=== PATIENT | female | born 1960 | race Caucasian/White ===

== ENCOUNTER → 2016-08-06 | Outpatient (CLI) | payer OTHER ==
--- NOTE | 2016-08-06 16:39 | DX ---
Cervical spine AP and lateral 1616 hours. History: Follow-up fusion. (M 54.2) Findings: Comparison to July 05, 2016. Anterior cervical fusion plate is in stable position from C4 through C7 along with disk replacement m aterial. Vertebral body heights are well-maintained. The intervertebral disk at C2-C3, C3-C4, and C7- T1 are normal in appearance. Precervical soft tissue swelling has resolved. Impression: 1. Good alignment of anterior cervical fusion from C4 through C7.
== END ==
LOC: FIMAGING 16:18
PROVIDERS: ATTEND Physician Assistant
DX: Z09 Encounter for follow-up examination after completed treatment for conditions other than malignant neoplasm (principal); Z98.1 Arthrodesis status

== ENCOUNTER → 2016-10-01 | Outpatient (CLI) | payer OTHER | LOC: FIMAGING 16:27 | PROVIDERS: ATTEND Neurological Surgery | DX: Z09 Encounter for follow-up examination after completed treatment for conditions other than malignant neoplasm (principal); Z98.1 Arthrodesis status ==

== ENCOUNTER → 2017-03-02 | Outpatient (CLI) | payer OTHER | LOC: FIMAGING 15:13 | PROVIDERS: ATTEND Physician Assistant | DX: Z09 Encounter for follow-up examination after completed treatment for conditions other than malignant neoplasm (principal); Z98.1 Arthrodesis status ==

== ENCOUNTER 2017-03-07 17:06 | Emergency (ER) | payer OTHER ==
[2017-03-07] MEDS ORDERED: NS 1,000 ML IV ONE (17:31)
[2017-03-07] MEDS ORDERED: ACETAMINOPHEN 500 MG TAB PO ONE (17:38)
[2017-03-07 17:39] LABS: % IMMATURE GRANULYOCYTES 0.3 % (0.0-1.1); ABSOLUTE IMMATURE GRANULOCYTES 0.03 10^3/uL (0.00-0.10); ADD DIFF? NO; ADD MORPH? NO; ADD SCAN? NO; ATYPICAL LYMPHOCYTE FLAG 10 (0-99); FRAGMENT RBC FLAG 0 (0-99); HEMATOCRIT 37.7 % (38.0-47.0); HEMOGLOBIN 13.2 g/dL (12.6-16.3); LEFT SHIFT FLG 0 (0-99); LIPEMIA HEMOLYSIS FLAG 90 (0-99); MEAN CELL HEMOGLOBIN 32.1 pg (27.9-34.1); MEAN CELL VOLUME 91.7 fL (81.5-99.8); PLATELET CLUMPS FLAG 0 (0-99); PLATELET COUNT 309 10^3/uL (150-400); RED BLOOD CELL COUNT 4.11 10^6/uL (4.18-5.33); RED CELL DISTRIBUTION WIDTH 12.2 % (11.5-15.2)
[2017-03-07 17:54] LABS: COLOR YELLOW; LEUKOCYTE ESTERASE,URINE 1+ (NEGATIVE); PH,URINE 5.5 (5.0-7.5)
[2017-03-07 17:54] LABS: ANION GAP 13 mEq/L (8-16); CALCIUM 9.3 mg/dL (8.5-10.4); CARBON DIOXIDE 23 mEq/l (22-31); CHLORIDE 101 mEq/L (97-110); CREATININE 0.7 mg/dL (0.6-1.0); GLOMERULAR FILTRATION RATE > 60; GLUCOSE 119 mg/dL (70-100); POTASSIUM 3.8 mEq/L (3.5-5.2); SODIUM 137 mEq/L (134-144)
[2017-03-07 17:56] LABS: NITRITE,URINE POSITIVE (NEGATIVE)
[2017-03-07 18:01] LABS: BACTERIA 3+ /hpf (NONE SEEN); MUCUS 1+ /lpf (NONE-1+); WBC,URINE 15-25 /hpf (0-3)
[2017-03-07 18:15] VITALS: BP 122/78; PULSE 90; RESP 16
[2017-03-07] MEDS ORDERED: KETOROLAC 15 MG/1 ML SDV IVP ONE (18:21)
--- NOTE | 2017-03-07 18:21 | EDPHY ---
H & P Stated Complaint: fever, diarrhea, bilat flank pain more LT than RT Time Seen by Provider: 03/07/17 17:33 HPI/ROS: This patient presents with fever, flank pain and a positive UA from the urgent care sent here for further workup and treatment of suspected pyelonephritis. She explains that over the past 2 days she has had fevers associated with left more than right flank pain. She has also had chills. She initially followed up with Neurosurgery having had of the cervical fusion in June for routine follow-up was noted to have a fever of 102.5. She called her primary care physician's office but was unable to get in, went to the urgent care and then sent here. She reports having had similar symptoms in the past the prior UTI. She notes no exacerbating factors for her symptoms. She notes associated fatigue. She arrived here by private vehicle. ROS: Constitutional as per HPI no other symptoms HEENT: No complaints Pulmonary: No cough shortness of breath Cardiovascular: No heart palpitations or lightheadedness. No chest pain. GI: Mild suprapubic pain is present. No other GI complaints. Normal bowel movements. : She has not noticed dysuria. She has chronic frequency with no recent changes. No vaginal discharge. Integumentary: No skin rash Neuro: No numbness tingling weakness. Complete review of symptoms is otherwise negative. Source: Patient Exam Limitations: No limitations - Personal History Current Tetanus/Diphtheria Vaccine: Yes Current Tetanus Diphtheria and Acellular Pertussis (TDAP): Yes - Medical/Surgical History PMH: Cervical fusion for right arm radiculopathy with resolution radiculopathy post surgery-done by Dr. Mundo Giron 3 UTI since 2007 Hx Asthma: No Hx Chronic Respiratory Disease: No Hx Diabetes: No Hx Cardiac Disease: No Hx Renal Disease: No Hx Cirrhosis: No Hx Alcoholism: No Hx HIV/AIDS: No Hx Splenectomy or Spleen Trauma: No Other PMH: BILAT KNEE SURGERY, NECK FUSION, - Family History Significant Family History: No pertinent family hx - Social History Smoking Status: Current every day smoker Alcohol Use: Other (Patient reports 1-2 glasses of wine a night.) Drug Use: None - Physical Exam Exam: Vital signs notable for temperature of 38.4degrees centigrade. General Appearance: Alert, no distress. Eyes: Pupils equal and round no pallor or injection. ENT, Mouth: Mucous membranes moist. Respiratory: There are no retractions, lungs are clear to auscultation. Cardiovascular: Regular rate and rhythm. Gastrointestinal: Normoactive to hyperactive bowel sounds, soft, mild suprapubic tenderness with no guarding or rebound. No organomegaly. Back: Mild left CVA tenderness. Otherwise normal Neurological: GCS 15. Skin: Warm and dry, no rashes. Musculoskeletal: Neck is supple nontender. Extremities are symmetrical, full range of motion. Psychiatric: Mood and affect normal DIFFERENTIAL DIAGNOSIS: After history and physical exam differential diagnosis was considered for pyelonephritis, low back strain, cystitis, urosepsis, doubt epidural abscess, abdominal migraine Constitutional: Initial Vital Signs Temperature (C) 38.4 C H 03/07/17 17:15 Heart Rate 99 03/07/17 17:15 Respiratory Rate 18 03/07/17 17:15 Blood Pressure 131/85 H 03/07/17 17:15 O2 Sat (%) 97 03/07/17 17:15 O2 Delivery Mode Room Air Allergies/Adverse Reactions: clindamycin Allergy (Verified 06/20/16 16:38) Hives/chest pains Home Medications: Medication Instructions Recorded Herbals/Supplements -Info Only 1 ea PO DAILY 06/19/16 Multivitamins [Multivitamin (*)] 1 each PO DAILY 06/19/16 Cephalexin [Keflex (*)] 500 mg PO TID #21 cap 03/07/17 Medical Decision Making ED Course/Re-evaluation: IV normal saline bolus Toradol IV Ceftriaxone IV Tylenol p.o. The patient felt improvement with treatment in terms of reduction in her pain. She does not have septic physiology in her lactate is normal. Other labs reveal mild leukocytosis. Kidney function and other chemistries are normal. She feels well at the time of d/c. - Data Points Laboratory Results: Laboratory Results 03/07/17 17:35 03/07/17 17:35 03/07/17 03/07/17 03/07/17 17:50 17:35 17:35 WBC 11.48 10^3/uL H 10^3/uL (3.80-9.50) RBC 4.11 10^6/uL L 10^6/uL (4.18-5.33) Hgb 13.2 g/dL g/dL (12.6-16.3) Hct 37.7 % L % (38.0-47.0) MCV 91.7 fL fL (81.5-99.8) MCH 32.1 pg pg (27.9-34.1) MCHC 35.0 g/dL g/dL (32.4-36.7) RDW 12.2 % % (11.5-15.2) Plt Count 309 10^3/uL 10^3/uL (150-400) MPV 9.0 fL fL (8.7-11.7) Neut % (Auto) 66.8 % % (39.3-74.2) Lymph % (Auto) 19.8 % % (15.0-45.0) Price % (Auto) 11.8 % % (4.5-13.0) Eos % (Auto) 0.6 % % (0.6-7.6) Baso % (Auto) 0.7 % % (0.3-1.7) Nucleat RBC Rel Count 0.0 % % (0.0-0.2) Absolute Neuts (auto) 7.68 10^3/uL H 10^3/uL (1.70-6.50) Absolute Lymphs (auto) 2.27 10^3/uL 10^3/uL (1.00-3.00) Absolute Monos (auto) 1.35 10^3/uL H 10^3/uL (0.30-0.80) Absolute Eos (auto) 0.07 10^3/uL 10^3/uL (0.03-0.40) Absolute Basos (auto) 0.08 10^3/uL 10^3/uL (0.02-0.10) Absolute Nucleated RBC 0.00 10^3/uL 10^3/uL (0-0.01) Immature Gran % 0.3 % % (0.0-1.1) Immature Gran # 0.03 10^3/uL 10^3/uL (0.00-0.10) VBG Lactic Acid Sodium 137 mEq/L mEq/L (134-144) Potassium 3.8 mEq/L mEq/L (3.5-5.2) Chloride 101 mEq/L mEq/L (97-110) Carbon Dioxide 23 mEq/l mEq/l (22-31) Anion Gap 13 mEq/L mEq/L (8-16) BUN 11 mg/dL mg/dL (7-23) Creatinine 0.7 mg/dL mg/dL (0.6-1.0) Estimated GFR > 60 Glucose 119 mg/dL H mg/dL (70-100) Calcium 9.3 mg/dL mg/dL (8.5-10.4) Urine Color YELLOW Urine Appearance HAZY Urine pH 5.5 (5.0-7.5) Ur Specific [place] <= 1.005 (1.002-1.030) Urine Protein NEGATIVE (NEGATIVE) Urine Ketones NEGATIVE (NEGATIVE) Urine Blood 2+ H (NEGATIVE) Urine Nitrate POSITIVE H (NEGATIVE) Urine Bilirubin NEGATIVE (NEGATIVE) Urine Urobilinogen 0.2 EU EU (0.2-1.0) Ur Leukocyte Esterase 1+ H (NEGATIVE) Urine RBC 10-15 /hpf H /hpf (0-3) Urine WBC 15-25 /hpf H /hpf (0-3) Ur Epithelial Cells TRACE /lpf /lpf (NONE-1+) Urine Bacteria 3+ /hpf H /hpf (NONE SEEN) Urine Mucus 1+ /lpf /lpf (NONE-1+) Urine Glucose NEGATIVE (NEGATIVE) 03/07/17 17:35 WBC RBC Hgb Hct MCV MCH MCHC RDW Plt Count MPV Neut % (Auto) Lymph % (Auto) Price % (Auto) Eos % (Auto) Baso % (Auto) Nucleat RBC Rel Count Absolute Neuts (auto) Absolute Lymphs (auto) Absolute Monos (auto) Absolute Eos (auto) Absolute Basos (auto) Absolute Nucleated RBC Immature Gran % Immature Gran # VBG Lactic Acid 0.8 mmol/L mmol/L (0.7-2.1) Sodium Potassium Chloride Carbon Dioxide Anion Gap BUN Creatinine Estimated GFR Glucose Calcium Urine Color Urine Appearance Urine pH Ur Specific [place] Urine Protein Urine Ketones Urine Blood Urine Nitrate Urine Bilirubin Urine Urobilinogen Ur Leukocyte Esterase Urine RBC Urine WBC Ur Epithelial Cells Urine Bacteria Urine Mucus Urine Glucose Medications Given: Discontinued Medications Acetaminophen (Tylenol) 1,000 mg PO EDNOW ONE Stop: 03/07/17 17:39 Last Admin: 03/07/17 18:10 Dose: 1,000 mg Ceftriaxone Sodium 1 gm/ (Sodium Chloride) 100 mls @ 200 mls/hr IV EDNOW ONE PRN Reason: Protocol Stop: 03/07/17 18:01 Last Admin: 03/07/17 17:45 Dose: 100 mls Sodium Chloride (Ns) 1,000 mls @ 0 mls/hr IV EDNOW ONE; Wide Open PRN Reason: Protocol Stop: 03/07/17 17:32 Last Admin: 03/07/17 17:47 Dose: 1,000 mls Ketorolac Tromethamine (Toradol) 15 mg IVP EDNOW ONE Stop: 03/07/17 18:22 Last Admin: 03/07/17 18:33 Dose: 15 mg Departure - Departure Disposition: Home, Routine, Self-Care Clinical Impression: Pyelonephritis Condition: Good Instructions: Urinary Tract Infection in Women (ED) Additional Instructions: Diagnosis: Pyelonephritis Plan: Drink plenty fluids Keflex antibiotic Ibuprofen Tylenol for pain as needed Follow up primary care physician for any ongoing symptoms despite treatment plan Return the emergency department for any significant worsening despite treatment plan. Referrals: Bertha Lang MD [Primary Care Provider] - As per Instructions Prescriptions: Cephalexin [Keflex (*)] 500 mg PO TID #21 cap
[2017-03-07 18:51] VITALS: TEMP 99; O2SAT 95
== END 2017-03-07 18:48 | disposition home or self-care (01) ==
LOC: CED 17:06
DX: N12 Tubulo-interstitial nephritis, not specified as acute or chronic (principal); B96.20 Unspecified Escherichia coli [E. coli] as the cause of diseases classified elsewhere; F17.200 Nicotine dependence, unspecified, uncomplicated; E86.9 Volume depletion, unspecified
CPT/HCPCS: 80048-PO; 81003-PO; 81015-PO; 83605-PO; 85025-PO; 96365; J0696; J1885

== ENCOUNTER → 2017-07-25 | Outpatient (CLI) | payer OTHER | LOC: FIMAGING 16:17 | PROVIDERS: ATTEND Physician Assistant Surgical | DX: Z98.1 Arthrodesis status (principal) ==

== ENCOUNTER → 2018-05-14 | Outpatient (CLI) | payer OTHER | LOC: FIMAGING 12:47 | PROVIDERS: ATTEND Family Medicine | DX: M71.21 Synovial cyst of popliteal space [Baker], right knee (principal); Z87.891 Personal history of nicotine dependence ==

== ENCOUNTER → 2018-09-22 | Outpatient (CLI) | payer OTHER | LOC: FIMAGING 06:59 | PROVIDERS: ATTEND Physician Assistant | DX: S83.251A Bucket-handle tear of lateral meniscus, current injury, right knee, initial encounter (principal); S83.242A Other tear of medial meniscus, current injury, left knee, initial encounter ==